=== PATIENT | male | born 1955 | race Caucasian/White ===

== ENCOUNTER → 2023-09-05 09:06 | Outpatient (REF) | payer MEDICARE, SELFPAY | LOC: RAD 09:06 | PROVIDERS: ATTENDING PHYSICIAN Internal Medicine Cardiovascular Disease; FAMILY PHYSICIAN Student in an Organized Health Care Education/Training Program | DX: I25.9 Chronic ischemic heart disease, unspecified (principal); Z01.810 Encounter for preprocedural cardiovascular examination; I49.3 Ventricular premature depolarization; I10 Essential (primary) hypertension; E78.5 Hyperlipidemia, unspecified | CPT/HCPCS: 75574; Q9967 ==

== ENCOUNTER 2023-09-23 09:43 | Day surgery (SDC) | payer MEDICARE, SELFPAY ==
[2023-09-19 07:54] VITALS: BMI 27.5
[2023-09-19 08:44] LABS: % Basophils 0.7 % (0-2); % Eosinophils 2.8 % (0-6); % Immature Granulocytes 0.2 % (0-0.5); % Lymphocytes 25.1 % (20.5-51.1); % Monocytes 12.5 % (1.7-9.3); % Neutrophils 58.7 % (42.2-75.2); Absolute Eosinophils 0.2 10^3/uL (0-0.7); Absolute Lymphocytes 1.4 10^3/uL (1.2-3.4); Absolute Monocytes 0.7 10^3/uL (0.1-0.6); Absolute Neutrophils 3.4 10^3/uL (1.4-6.5); Hematocrit 42.8 % (39.0-52.0); Hemoglobin 14.6 g/dL (13.0-18.0); Mean Corp Hgb Conc. 34.1 g/dL (33.0-37.0); Mean Corpuscular Hgb 31.2 pg (27.0-31.0); Mean Corpuscular Volume 91.5 fL (80.0-94.0); Mean Platelet Volume 10.1 fL (7.4-10.4); Nucleated Red Blood Cells % 0 % (-); Platelet Count 258 10^3/uL (130-400); Red Blood Cell Count 4.68 10^6/uL (4.70-6.10); Red Cell Dist. Width 13.3 % (11.5-14.5); White Blood Cell Count 5.7 10^3/uL (4.8-10.8)
[2023-09-19 09:24] LABS: ALT (SGPT) 18 U/L (0-50); AST (SGOT) 27 U/L (17-59); Albumin 4.1 g/dl (3.5-5.0); Alkaline Phosphatase 51 U/L (38-126); Blood Urea Nitrogen 13 mg/dl (9-20); Carbon Dioxide 25 mmol/L (22-30); Chloride 106 mmol/L (98-107); Estimated Creatinine Clearance 97 ml/min; Glucose 100 mg/dl (70-99); Sodium 139 mmol/L (135-145); Total Bilirubin 0.8 mg/dl (0.2-1.3); Total Protein 6.5 g/dl (6.3-8.2); eGFR > 60.00
[2023-09-23 09:53] VITALS: BP 163/111
[2023-09-23 10:03] VITALS: BP 163/111
[2023-09-23] MEDS: LOW STRENGTH ASPIRIN 81 MG PO (10:19)
[2023-09-23 14:08] VITALS: BP 109/75
--- NOTE | 2023-09-23 14:26 | ITS.CL.CATH ---
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
Cardiac Catheterization
Procedure Report:
CARDIAC CATHETERIZATION REPORT
Date of Procedure: 09/23/2023
Referring: Jonathon Perla DO
Indication: Markedly elevated coronary calcium score (approximately 2600) and abnormal CTA
HEMODYNAMIC DATA
AO: 123/87
LV: 123/12
LEFT VENTRICULOGRAPHY: Normal ventricular wall motion with EF 67%
CORONARY ANGIOGRAPHY
Dominance: Right
Left Main: Calcification without obstruction
LAD: 40-50% mid LAD stenosis spanning the takeoff of D2. The remainder of the LAD proper has mild luminal irregularities. D1 is large with 80% proximal stenosis. D2 is large with 50% mid stenosis
Circumflex: The circumflex gives rise to a small OM1, large OM 2 and small OM 3 before terminating with a medium sized OM 4. There is 20% proximal to mid circumflex stenosis with a focal 50-60% distal circumflex stenosis involving the origin of the
terminal OM 4. The large OM 2 has focal 70% proximal stenosis and 50% mid stenosis.
RCA: Large dominant moderately calcified vessel with 30% mid stenosis. The large PDA has 90% mid stenosis. The RCA terminates with a small posterolateral system.
Closure Device: None-the procedure was formed via the right radial artery. The Jason's test was normal prior to the procedure.
Radiation (mGy): 308
DAP (cm2.Gy): 21.5
Fluoroscopy time: 2.4 minutes
CONCLUSIONS
1: Normal left ventricular function with EF 67%
2: Triple-vessel CAD as described
3. The patient has no symptoms of exertional chest discomfort or exertional dyspnea. Given this setting of stable CAD, there is no role for stenting to improve symptoms as he is asymptomatic. His severe lesions are in branch vessels and his LVEF
is normal. Therefore I do not see any survival advantage of CABG for this patient at this time. Recommend medical therapy with high-dose statin to achieve LDL less than 55 (patient currently on maximum dose of rosuvastatin) and aspirin 81 mg
daily. If he develops exertional angina can try medical therapy and if his symptoms persist despite good medical regimen then surgical revascularization may be appropriate
Copy to: Jonathon Perla DO, Ector Dunn DO
Valentín Astorga MD, [facility], [facility]
== END 2023-09-23 16:39 | disposition home or self-care (01) ==
LOC: CATH 09:43
PROVIDERS: ATTENDING PHYSICIAN Internal Medicine Cardiovascular Disease; FAMILY PHYSICIAN Student in an Organized Health Care Education/Training Program; OTHER PHYSICIAN Internal Medicine Cardiovascular Disease
DX: I25.10 Atherosclerotic heart disease of native coronary artery without angina pectoris (principal); R00.2 Palpitations; I44.4 Left anterior fascicular block; I10 Essential (primary) hypertension; E78.5 Hyperlipidemia, unspecified; Z79.82 Long term (current) use of aspirin; Z79.899 Other long term (current) drug therapy; K21.9 Gastro-esophageal reflux disease without esophagitis; Z87.891 Personal history of nicotine dependence
CPT/HCPCS: 36415; 80053; 85025; 93005; 93458; C1769; C1894; Q9967

== ENCOUNTER 2024-02-18 06:17 | Day surgery (SDC) | payer MEDICARE, SELFPAY ==
--- NOTE | 2024-02-16 09:49 | VNURNOTE ---
Patient is scheduled for an elective R TKA on 02/18/24- he is a same day patient with Dr Chance. Spoke with patient prior to surgery. Introduced role of [facility] Liaison. Patient reports that he lives with his in a MULTI story home.
There are 2 steps to enter and a flight of steps to the second floor.
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 He currently functions independently. He has a cane and rolling walker.
PCP is Dr cEtor Akbar.
Discussed [facility] joint protocol and post surgical plans.
Reviewed that he will have [facility] services initially and will then start outpatient PT.
Patient selects [facility] for his home care needs and will go to [facility] for outpatient PT. Scheduled for 02/22.
Patient is in agreement with plan and states that his will be home with him. Advised to bring RW with him day of surgery.
Plan: [facility] per [facility] joint protocol then outpt PT on 02/22 at [facility]
[2024-02-18] VITALS (11 sets, daily range): BP systolic 85–134; BP diastolic 52–76; PULSE 80; O2SAT 97; BMI 25.7
[2024-02-18] MEDS: CELEBREX 200 MG PO (08:04)
[2024-02-18] MEDS: TYLENOL 650 MG PO (08:05)
[2024-02-18 08:38] LABS: ALT (SGPT) 20 U/L (0-50); AST (SGOT) 28 U/L (17-59); Albumin 4.2 g/dl (3.5-5.0); Alkaline Phosphatase 50 U/L (38-126); Blood Urea Nitrogen 15 mg/dl (9-20); Calcium 9.7 mg/dl (8.4-10.2); Carbon Dioxide 24 mmol/L (22-30); Chloride 104 mmol/L (98-107); Estimated Creatinine Clearance 84 ml/min; Glucose 103 mg/dl (70-99); Potassium 4.3 mmol/L (3.5-5.1); Sodium 141 mmol/L (135-145); Total Bilirubin 0.9 mg/dl (0.2-1.3); Total Protein 6.7 g/dl (6.3-8.2); eGFR > 60.00
[2024-02-18 09:27] LABS: Glycohemoglobin (HgbA1c) 5.5 % (4.0-5.6)
[2024-02-18] MEDS: ANCEF 5 IV (13:01)
== END 2024-02-18 13:41 | disposition home health service (06) ==
LOC: SDS 06:17
PROVIDERS: ATTENDING PHYSICIAN Orthopaedic Surgery
PROC: 0SRC0J9 Replacement of Right Knee Joint with Synthetic Substitute, Cemented, Open Approach (ICD-10-PCS; 2024-02-18)
DX: M17.11 Unilateral primary osteoarthritis, right knee (principal)
CPT/HCPCS: 27447; 73560; 80053; 83036; 87070; 97116; 97162; C1713; C1776

== ENCOUNTER → 2024-05-06 10:12 | Outpatient (REF) | payer OTHER, SELFPAY | LOC: RAD 10:12 | PROVIDERS: ATTENDING PHYSICIAN Physician Assistant Medical | DX: I82.409 Acute embolism and thrombosis of unspecified deep veins of unspecified lower extremity (principal); M79.669 Pain in unspecified lower leg | CPT/HCPCS: 93971 ==

== ENCOUNTER 2024-05-19 06:07 | Day surgery (SDC) | payer OTHER, SELFPAY ==
[2024-05-05 12:27] LABS: Hematocrit 45.7 % (39.0-52.0); Hemoglobin 15.6 g/dL (13.0-18.0); Mean Corp Hgb Conc. 34.1 g/dL (33.0-37.0); Mean Corpuscular Hgb 30.5 pg (27.0-31.0); Mean Corpuscular Volume 89.3 fL (80.0-94.0); Mean Platelet Volume 10.2 fL (7.4-10.4); Platelet Count 274 10^3/uL (130-400); Red Blood Cell Count 5.12 10^6/uL (4.70-6.10); Red Cell Dist. Width 12.7 % (11.5-14.5); White Blood Cell Count 6.3 10^3/uL (4.8-10.8)
[2024-05-05 13:29] LABS: ALT (SGPT) 20 U/L (0-50); AST (SGOT) 24 U/L (17-59); Albumin 4.5 g/dl (3.5-5.0); Alkaline Phosphatase 59 U/L (38-126); Blood Urea Nitrogen 14 mg/dl (9-20); Calcium 10.2 mg/dl (8.4-10.2); Carbon Dioxide 24 mmol/L (22-30); Chloride 101 mmol/L (98-107); Glucose 94 mg/dl (70-99); Potassium 4.6 mmol/L (3.5-5.1); Sodium 136 mmol/L (135-145); Total Bilirubin 0.4 mg/dl (0.2-1.3); eGFR > 60.00
[2024-05-05 13:35] LABS: Glycohemoglobin (HgbA1c) 5.5 % (4.0-5.6)
[2024-05-05 14:10] VITALS: BMI 26.1
--- NOTE | 2024-05-05 14:11 | VNURNOTE ---
[facility] liaison reached out to speak w/pt about post op plans/[facility] joint protocol. No answer, left message.
--- NOTE | 2024-05-06 08:42 | VNURNOTE ---
Patient is scheduled for an elective L TKA on 05/19/24- he is a same day patient with Dr Chance. Spoke with patient prior to surgery. Introduced role of [facility] Liaison. Patient reports that he lives with his in a MULTI story home.
There are 2 steps to enter and a flight of steps to the second floor.
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 He has a cane and rolling walker.
He had [facility]N services after his prior knee surgery and it was same day surgery.
PCP is Dr Ector Dunn.
Discussed [facility] joint protocol and post surgical plans.
Reviewed that he will have [facility] services initially and will then start outpatient PT.
Patient selects [facility] for his home care needs and will go to [facility] for outpatient PT. Scheduled for 2.
Patient is in agreement with plan and states that his will be home with him. Advised to bring RW with him day of surgery. Referral placed in [facility].
Plan: [facility] per [facility] joint protocol 05/19 then outpt PT on 05/24
[2024-05-13 13:15] VITALS: BMI 26.1
[2024-05-19] VITALS (12 sets, daily range): BP systolic 91–134; BP diastolic 47–88; PULSE 95; O2SAT 95
[2024-05-19] MEDS: CELEBREX 200 MG PO (07:33)
[2024-05-19] MEDS: TYLENOL 650 MG PO (07:33)
[2024-05-19] MEDS: NORMOSOL-R/PLASMALYTE-A 1000 IV (07:33)
--- NOTE | 2024-05-19 08:23 | W.DS.TRANS ---
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
-
Discharge Instructions:
Sleep Apnea Risk Intermediate
Discharge Diagnosis/Procedures L TKA 05/19/24
Diet As tolerated
Activity With Walker
Driving Restrictions No driving
Bathing Restrictions OK to Shower
Other Services PT
Instructions:
Stand-Alone Forms: SDS Total Hip and Knee D/C
Changes to Home Medications: Yes
Discharge Medications:
DC Medications w/original date entered in [email or web address]
cholecalciferol (vitamin D3) 50 mcg (2,000 unit) capsule (Vitamin D3) 50 mcg PO Q48H 09/18/23
rosuvastatin 40 mg tablet 40 mg PO QPM 09/18/23
nitroglycerin 0.4 mg sublingual tablet 0.4 mg sublingual [id number] PRN chest pain #25 tabs 09/23/23
ezetimibe 10 mg tablet 10 mg PO 1800 02/16/24
mecobalamin (vitamin B12) 1,000 mcg chewable tablet (B12 Active) 1,000 mcg PO DAILY 02/16/24
amlodipine 5 mg tablet 5 mg PO 0500 #1 tab 02/18/24
docusate sodium 100 mg capsule (Colace) 100 mg PO BID #30 caps 02/18/24
olmesartan 20 mg tablet 20 mg PO 0600 #1 tab 02/18/24
aspirin 81 mg capsule 81 mg PO DAILY 05/03/24
celecoxib 200 mg capsule 200 mg PO DAILY anti-inflammatory #14 caps 05/05/24
dexamethasone 4 mg tablet 4 mg PO BID inflammation #6 tabs 05/05/24
gabapentin 300 mg capsule 300 mg PO HS sleep/pain #10 caps 05/05/24
mupirocin 2 % topical ointment 1 applic topical BID infection prevention #1 tube 05/05/24
oxycodone 5 mg tablet 5 mg PO Q6H PRN 1 tab moderate pain, 2 tabs severe pain #30 tabs 05/05/24
acetaminophen 500 mg tablet 1,000 mg (2 x 500 mg) PO QID #0 tabs 05/19/24
aspirin 325 mg tablet 325 mg PO DAILY blood clot prevention #1 tab 05/19/24
docusate sodium 100 mg capsule (Colace) 100 mg PO BID stool softner #1 cap 05/19/24
magnesium hydroxide 400 mg/5 mL oral suspension (Milk of Magnesia) 30 ml PO HS PRN Constipation #1 mL 05/19/24
sennosides 8.6 mg tablet (Senokot) 17.2 mg (2 x 8.6 mg) PO BID laxative #2 tabs 05/19/24
Home Medication Changes
celecoxib 200 mg capsule 200 mg PO DAILY anti-inflammatory #14 caps 05/05/24
dexamethasone 4 mg tablet 4 mg PO BID inflammation #6 tabs 05/05/24
gabapentin 300 mg capsule 300 mg PO HS sleep/pain #10 caps 05/05/24
mupirocin 2 % topical ointment 1 applic topical BID infection prevention #1 tube 05/05/24
oxycodone 5 mg tablet 5 mg PO Q6H PRN 1 tab moderate pain, 2 tabs severe pain #30 tabs 05/05/24
acetaminophen 500 mg tablet 1,000 mg (2 x 500 mg) PO QID #0 tabs 05/19/24
aspirin 325 mg tablet 325 mg PO DAILY blood clot prevention #1 tab 05/19/24
docusate sodium 100 mg capsule (Colace) 100 mg PO BID stool softner #1 cap 05/19/24
magnesium hydroxide 400 mg/5 mL oral suspension (Milk of Magnesia) 30 ml PO HS PRN Constipation #1 mL 05/19/24
sennosides 8.6 mg tablet (Senokot) 17.2 mg (2 x 8.6 mg) PO BID laxative #2 tabs 05/19/24
Pending Results: No
[2024-05-19] MEDS: ROXICODONE 5 MG PO (12:40)
[2024-05-19] MEDS: ANCEF 5 IV (12:40)
== END 2024-05-19 13:30 | disposition home or self-care (01) ==
LOC: SDS 06:07
PROVIDERS: ATTENDING PHYSICIAN Orthopaedic Surgery; FAMILY PHYSICIAN Student in an Organized Health Care Education/Training Program; OTHER PHYSICIAN Physician Assistant Medical; REFERRING PHYSICIAN Internal Medicine Cardiovascular Disease
PROC: 0SRD0J9 Replacement of Left Knee Joint with Synthetic Substitute, Cemented, Open Approach (ICD-10-PCS; 2024-05-19)
DX: M17.12 Unilateral primary osteoarthritis, left knee (principal); I10 Essential (primary) hypertension; E78.5 Hyperlipidemia, unspecified; I25.10 Atherosclerotic heart disease of native coronary artery without angina pectoris; I49.3 Ventricular premature depolarization; Z79.82 Long term (current) use of aspirin; Z79.899 Other long term (current) drug therapy
CPT/HCPCS: 27447; 36415; 73560; 80053; 83036; 85027; 86850; 86900; 86901; 87070; 97116; 97162; C1713; C1776

== ENCOUNTER → 2025-04-16 07:17 | Outpatient (REF) | payer OTHER, SELFPAY | LOC: PAVMRI 07:17 | PROVIDERS: ATTENDING PHYSICIAN Physician Assistant Surgical; FAMILY PHYSICIAN Student in an Organized Health Care Education/Training Program | DX: M54.12 Radiculopathy, cervical region (principal); M54.2 Cervicalgia; R20.2 Paresthesia of skin | CPT/HCPCS: 72141 ==